=== PATIENT | male | born 1990 | race Caucasian/White ===

== ENCOUNTER 2024-12-03 15:22 | Emergency (ER) | payer OTHER, SELFPAY ==
--- NOTE | ~2024-12-03 | XR_ITS ---
EXAMINATION: XR chest 2V Exam Date/Time: 12/03/2024 15:56 JANITOR HELPER HISTORY: cough Comparison: None. RESULT: Lines, tubes, and devices: None. Lungs and pleura: Slightly low lung volumes with crowding, otherwise clear. Cardiomediastinal silhouette: Normal. Other: No acute osseous or upper abdominal finding. IMPRESSION: No acute cardiopulmonary process. Reviewed, dictated and finalized at location K. TOR HELPER
[2024-12-03 15:29] VITALS: BP 128/77; PULSE 98; RESP 18; TEMP 35.5; O2SAT 97
--- NOTE | 2024-12-03 16:26 | ED.GENADULT ---
HPI - General Adult General Chief complaint: Upper Respiratory Infection Stated complaint: cough Time Seen by Provider: 12/03/24 15:45 Source: patient Mode of arrival: ambulatory Limitations: no limitations History of Present Illness HPI narrative: 34-year-old male presents with complaint of dry cough since August. Patient states that he thinks that the cough is related to taking lisinopril. For the last 4 days cough seems worse. No chest pain or shortness breath. Wants chest x-ray to rule out pneumonia. Patient is well-appearing. Denies fever, chills, body aches. Has appoint with his primary care physician December 29. All systems reviewed and negative except as noted above. Related Data Home Medications ?Medication ?Instructions ?Recorded ?Confirmed ?Last Taken ?Type bupropion HCl 75 mg tablet 150 mg PO TID 03/05/24 10/08/24 Unknown History prazosin 2 mg capsule 2 mg PO QHS 03/05/24 10/08/24 Unknown History sertraline 100 mg tablet 100 mg PO DAILY 03/05/24 10/08/24 Unknown History trazodone 150 mg tablet 150 mg PO QHS PRN 10/08/24 10/08/24 Unknown History Allergies Allergy/AdvReac Type Severity Reaction Status Date / Time c[facility] ([facility] AdvReac Unknown Unknown Unverified 03/05/24 14:17 seasonal allergies AdvReac Unknown Unknown Uncoded 03/05/24 14:05 Review of Systems Review of Systems: CONSTITUTIONAL: Denies fever, chills, or sweats. EYES: Denies visual changes, redness, or discharge. ENT: denies rhinorrhea, congestion, sore throat, or otalgia. CARDIOVASCULAR: Denies chest pain, palpitations, or edema. RESPIRATORY: reports cough. Denies dyspnea. GASTROINTESTINAL: Denies abdominal pain, nausea, vomiting, or diarrhea. GENITOURINARY: Denies dysuria or hematuria. SKIN: Denies rash or itching. MUSCULOSKELETAL: Denies back pain, joint pain, or myalgia. NEUROLOGIC: Denies headache, numbness, or weakness. PSYCHIATRIC: Denies anxiety or depression. All other systems reviewed are negative, except as documented in HPI. FOR[facility]LY [facility] Past Medical History Medical History Anxiety Cleft lip Elbow pain, right Migraine Need for Tdap vaccination Restless sleeper Surgical defect of lip Surgical History Surgical History No history of previous surgery Family History Family History Father Diabetes mellitus Mother Diabetes mellitus Social History Social History Smoking status: Former smoker Comments At time of signature, agree with nursing past medical, surgical, social and family history. There is no relevant family history pertinent to the presenting complaint. Exam Narrative: GENERAL: This is a well-nourished, well-developed patient, in no apparent distress. HEAD: normocephalic, atraumatic. EYES: PERRL. Sclera clear/white. Vision is grossly intact. EARS: External ears normal, auditory canals clear and without drainage, TMs normal without perforation. Hearing grossly intact. NOSE: External nose normal with no obvious nasal discharge, nares without redness, no rhinorrhea. THROAT: Mucous membranes moist, posterior pharynx clear. NECK: Neck supple, non-tender without lymphadenopathy, masses or thyromegaly. CARDIOVASCULAR: Regular rate and rhythm without murmurs, gallops, or rubs. RESPIRATORY: Clear to auscultation. Breath sounds equal bilaterally. No wheezes, rales, or rhonchi. SKIN: warm, Dry, intact with no suspicious lesions or rash, good texture and turgor. NEURO: awake, alert, and oriented to person, place and time. There were no obvious focal neurologic abnormalities. EXTREMITIES: No joint tenderness, effusion, or edema noted. Course Course Level of Care: Express Care Visit Vital Signs Vital signs: Vital Signs Temperature 35.5 C L 12/03/24 15:29 Pulse Rate 98 12/03/24 15: Respiratory Rate 18 12/03/24 15: Blood Pressure 128/77 12/03/24 15: Pulse Oximetry 97 12/03/24 15:29 Oxygen Delivery Room Air 12/03/24 15: Temperature 35.5 C L 12/03/24 15: Pulse Rate 98 12/03/24 15:29 Respiratory Rate 18 12/03/24 15:29 Blood Pressure 128/77 12/03/24 15:29 Pulse Oximetry 97 12/03/24 15:29 Oxygen Delivery Room Air 12/03/24 15:29 reviewed Medical Decision Making MDM Narrative Medical decision making narrative: patient is well-appearing, nontoxic. Vital signs stable. Chest x-ray was normal. Lungs are clear to auscultation. No cough noted while patient at [facility]. Recommend patient follow-up with his primary care physician to further discuss if blood pressure medication is causing cough. Patient is aware of diagnosis, understands and agrees to treatment plan. Anticipatory guidance given. Patient agrees to follow-up as directed and is aware of reasons to seek care at the emergency department. Portions of this record may have been created with voice recognition software Vital Signs Vital Signs: Vital Signs Temperature 35.5 C L 12/03/24 15:29 Pulse Rate 98 12/03/24 15:29 Respiratory Rate 18 12/03/24 15:29 Blood Pressure 128/77 12/03/24 15:29 Pulse Oximetry 97 12/03/24 15:29 Oxygen Delivery Room Air 12/03/24 15:29 Temperature 35.5 C L 12/03/24 15:29 Pulse Rate 98 12/03/24 15:29 Respiratory Rate 18 12/03/24 15:29 Blood Pressure 128/77 12/03/24 15:29 Pulse Oximetry 97 12/03/24 15:29 Oxygen Delivery Room Air 12/03/24 15:29 Imaging Data My impression: agree with radiologist Radiologist's impression: EXAMINATION: XR chest 2V Exam Date/Time: 12/03/2024 15:56 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 RESULT: Lines, tubes, and devices: None. Lungs and pleura: Slightly low lung volumes with crowding, otherwise clear. Cardiomediastinal silhouette: Normal. Other: No acute osseous or upper abdominal finding. IMPRESSION: No acute cardiopulmonary process. Discharge Plan Discharge Clinical Impression: Cough Qualifiers: Cough type: unspecified Qualified Code(s): R05.9 - Cough, unspecified Patient Disposition: Home, Self-Care Condition: Stable Instructions: Acute Cough (ED) Additional Instructions: your x-ray was negative for pneumonia. Follow-up with your primary care physician at scheduled appointment to further discuss changing your blood pressure medication. Patient Language: Mongolian Prescriptions: No Action bupropion HCl 75 mg tablet 150 mg PO TID Rx Instructions: administer 6 hours apart prazosin 2 mg capsule 2 mg PO QHS sertraline 100 mg tablet 100 mg PO DAILY trazodone 150 mg tablet 150 mg PO QHS PRN lisinopril 10 mg tablet 10 mg PO DAILY Qty: 90 0RF Follow-up/Referrals: Zulma Toledo APRN [Primary Care Provider] - Time of Disposition: 16:32
== END 2024-12-03 16:34 | disposition home or self-care (01) ==
PROVIDERS: Emergency Provider Nurse Practitioner Family; PCP Nurse Practitioner Family
DX: R05.9 Cough, unspecified (principal)
CPT/HCPCS: 71046; 99213; G0463